=== PATIENT | male | born 1960 | race Caucasian/White ===

== ENCOUNTER → 2019-04-22 | Outpatient (CLI) | payer OTHER ==
[~2019-04-22] MED LIST: ASPIRIN81 M1 PO; GLIMEPIRIDE4 M1 PO; LEVEMIR FL100 UNIT/1 SQ; LIPITOR20 MG PO; METFORMIN1000 MG PO; METOPROLOL SUCC25 M2 PO; STARLIX60 MG PO
== END | disposition home or self-care (01) ==
LOC: US 09:33
DX: E04.1 Nontoxic single thyroid nodule (principal); R91.1 Solitary pulmonary nodule

== ENCOUNTER → 2019-05-24 | Day surgery (SDC) | payer OTHER ==
[~2019-05-24] VITALS: Ht 182.8 cm; Wt 88.5 kg
[2019-05-24 07:05] VITALS: BP 136/87
[2019-05-24 09:06] VITALS: BP 143/82
[2019-05-24 09:21] VITALS: BP 140/86
[2019-05-24 09:36] VITALS: BP 136/78
--- NOTE | 2019-05-24 10:09 | NUR ---
PT WAS FEELING NAUSEATED AFTER DISCHARGED. PRESCRIBED A ZOFRAN ODT. ADMINISTERED PRESCRIBED. THIS RN ALOS CHECKED PTS BSG, WITH RESULTS OF 258.
== END | disposition home or self-care (01) ==
LOC: SDC 05-14 17:00
DX: Z12.11 Encounter for screening for malignant neoplasm of colon (principal); D12.5 Benign neoplasm of sigmoid colon; D12.3 Benign neoplasm of transverse colon; K62.1 Rectal polyp; K57.30 Diverticulosis of large intestine without perforation or abscess without bleeding; K63.5 Polyp of colon; I10 Essential (primary) hypertension; E11.9 Type 2 diabetes mellitus without complications; K21.9 Gastro-esophageal reflux disease without esophagitis; K44.9 Diaphragmatic hernia without obstruction or gangrene; G47.30 Sleep apnea, unspecified; E78.5 Hyperlipidemia, unspecified; Z83.3 Family history of diabetes mellitus; Z82.49 Family history of ischemic heart disease and other diseases of the circulatory system; Z82.3 Family history of stroke; Z79.899 Other long term (current) drug therapy; Z98.890 Other specified postprocedural states; Z87.891 Personal history of nicotine dependence

== ENCOUNTER 2019-09-04 11:13 | Emergency (ER) | payer OTHER ==
[~2019-09-04] VITALS: Wt 89.8 kg
[2019-09-04] MEDS ORDERED: DOXYCYCLINE100 M3 PO (11:39)
[2019-09-04] MEDS ORDERED: IBUPROFEN600 MG PO (11:39)
== END 2019-09-04 11:46 | disposition home or self-care (01) ==
LOC: ED 11:13
DX: L72.3 Sebaceous cyst (principal); L08.9 Local infection of the skin and subcutaneous tissue, unspecified; Z79.899 Other long term (current) drug therapy; Z79.82 Long term (current) use of aspirin

== ENCOUNTER → 2019-09-07 | Outpatient (CLI) | payer OTHER ==
[~2019-09-07] MED LIST changes: +DOXYCYCLINE100 M3 PO; +IBUPROFEN600 MG PO
== END | disposition home or self-care (01) ==
LOC: RAD 11:35
DX: M54.41 Lumbago with sciatica, right side (principal); M54.42 Lumbago with sciatica, left side; G89.29 Other chronic pain; M25.78 Osteophyte, vertebrae

== ENCOUNTER → 2019-09-30 | Day surgery (SDC) | payer OTHER ==
[~2019-09-30] VITALS: Ht 182.8 cm; Wt 89.8 kg
[2019-09-30 09:39] VITALS: BP 152/86
[2019-09-30 11:15] VITALS: BP 141/92
[2019-09-30 11:20] VITALS: BP 140/86
[2019-09-30 11:25] VITALS: BP 128/86
[2019-09-30 11:30] VITALS: BP 126/85
[2019-09-30 11:34] VITALS: BP 132/86
== END | disposition home or self-care (01) ==
LOC: SDC 09-20 11:45
DX: L72.0 Epidermal cyst (principal); I10 Essential (primary) hypertension; E11.9 Type 2 diabetes mellitus without complications; K21.9 Gastro-esophageal reflux disease without esophagitis; Z79.82 Long term (current) use of aspirin; Z79.899 Other long term (current) drug therapy; Z98.890 Other specified postprocedural states; Z83.3 Family history of diabetes mellitus; Z82.49 Family history of ischemic heart disease and other diseases of the circulatory system; Z82.3 Family history of stroke

== ENCOUNTER → 2021-01-09 | Outpatient (CLI) | payer OTHER | END | disposition home or self-care (01) | LOC: CARD 01-04 13:00 | PROVIDERS: ATTEND Internal Medicine Cardiovascular Disease | DX: R01.1 Cardiac murmur, unspecified (principal); I10 Essential (primary) hypertension ==

== ENCOUNTER → 2021-02-27 | Outpatient (CLI) | payer OTHER | END | disposition home or self-care (01) | LOC: US 12:30 | PROVIDERS: ATTEND Internal Medicine Endocrinology, Diabetes & Metabolism | DX: E04.1 Nontoxic single thyroid nodule (principal) ==

== ENCOUNTER → 2022-03-25 | Outpatient (CLI) | payer OTHER | END | disposition home or self-care (01) | LOC: RAD 11:49 | PROVIDERS: ATTEND Nurse Practitioner Primary Care | DX: M16.11 Unilateral primary osteoarthritis, right hip (principal) ==

== ENCOUNTER → 2022-07-01 | Outpatient (CLI) | payer OTHER | END | disposition home or self-care (01) | LOC: RAD 11:44 | PROVIDERS: ATTEND Chiropractor | DX: M47.816 Spondylosis without myelopathy or radiculopathy, lumbar region (principal); M85.88 Other specified disorders of bone density and structure, other site ==

== ENCOUNTER → 2022-10-28 | Outpatient (CLI) | payer OTHER | END | disposition home or self-care (01) | LOC: RAD 09:56 | PROVIDERS: ATTEND Internal Medicine | DX: Z01.818 Encounter for other preprocedural examination (principal); M85.88 Other specified disorders of bone density and structure, other site; R91.8 Other nonspecific abnormal finding of lung field; I70.0 Atherosclerosis of aorta; Z96.649 Presence of unspecified artificial hip joint ==

== ENCOUNTER 2023-03-22 17:15 | Emergency (ER) | payer OTHER ==
[~2023-03-22] VITALS: Ht 180.3 cm; Wt 82.6 kg
[2023-03-22] MEDS ORDERED: LISINOPRIL10 M1 PO (17:47)
[2023-03-22] MEDS ORDERED: ADMELOG100 UNIT/1 SQ (17:48)
[2023-03-22] MEDS ORDERED: CLINDAMYCIN HC300 MG PO (19:02)
== END 2023-03-22 19:29 | disposition home or self-care (01) ==
LOC: ED 17:15
DX: L02.212 Cutaneous abscess of back [any part, except buttock and flank] (principal); E11.9 Type 2 diabetes mellitus without complications; K21.9 Gastro-esophageal reflux disease without esophagitis; Z79.4 Long term (current) use of insulin; Z90.89 Acquired absence of other organs; Z98.890 Other specified postprocedural states

== ENCOUNTER → 2023-05-26 | Day surgery (SDC) | payer OTHER ==
[~2023-05-26] VITALS: Ht 182.8 cm; Wt 83.9 kg
[~2023-05-26] MED LIST changes: +ADMELOG100 UNIT/1 SQ; +CLINDAMYCIN HC300 MG PO; +HYDROCODONE-AC1 EAC1 PO; +LISINOPRIL10 M1 PO
[2023-05-26 06:45] VITALS: BP 145/85
[2023-05-26 08:00] VITALS: BP 116/56
[2023-05-26 08:15] VITALS: BP 107/56
[2023-05-26 08:24] VITALS: BP 111/58
== END ==
LOC: SDC 04-28 11:00
PROVIDERS: ATTEND Surgery
DX: L72.0 Epidermal cyst (principal); E11.9 Type 2 diabetes mellitus without complications; M54.50 Low back pain, unspecified; Z98.890 Other specified postprocedural states; Z79.899 Other long term (current) drug therapy

== ENCOUNTER → 2024-01-23 | Outpatient (CLI) | payer OTHER | END | disposition home or self-care (01) | LOC: US 01:41 | PROVIDERS: ATTEND Nurse Practitioner Primary Care | DX: E04.1 Nontoxic single thyroid nodule (principal) ==

== ENCOUNTER → 2024-01-24 | Outpatient (CLI) | payer OTHER | END | disposition home or self-care (01) | LOC: CT 01:51 | PROVIDERS: ATTEND Nurse Practitioner Primary Care | DX: Z12.2 Encounter for screening for malignant neoplasm of respiratory organs (principal); I25.10 Atherosclerotic heart disease of native coronary artery without angina pectoris; J43.2 Centrilobular emphysema; R91.1 Solitary pulmonary nodule; Z72.0 Tobacco use ==

== ENCOUNTER 2024-02-22 11:25 | Emergency (ER) | payer OTHER ==
[~2024-02-22] VITALS: Ht 182.9 cm; Wt 86.2 kg
== END 2024-02-22 12:42 | disposition home or self-care (01) ==
LOC: ED 11:25
DX: S92.515A Nondisplaced fracture of proximal phalanx of left lesser toe(s), initial encounter for closed fracture (principal); E11.9 Type 2 diabetes mellitus without complications; K21.9 Gastro-esophageal reflux disease without esophagitis; I10 Essential (primary) hypertension; Z90.89 Acquired absence of other organs; Z98.890 Other specified postprocedural states; Z79.4 Long term (current) use of insulin; W22.01XA Walked into wall, initial encounter; Y93.89 Activity, other specified; Y92.89 Other specified places as the place of occurrence of the external cause; Y99.8 Other external cause status

== ENCOUNTER → 2025-07-09 | Outpatient (CLI) | payer OTHER ==
[2025-07-09 09:02] LABS: BUN 20 mg/dl (9-23); LDL CHOLESTEROL 69 mg/dL (9-159); SGPT/ALT 12 U/L (5-49)
== END | disposition home or self-care (01) ==
LOC: LAB 08:14
PROVIDERS: Student in an Organized Health Care Education/Training Program; ATTEND Internal Medicine Endocrinology, Diabetes & Metabolism
DX: E11.9 Type 2 diabetes mellitus without complications (principal)

== ENCOUNTER 2025-10-28 12:32 | Emergency (ER) | payer OTHER ==
[~2025-10-28] VITALS: Ht 182.8 cm; Wt 92.1 kg
[2025-10-28] MEDS ORDERED: Acetaminophen/Oxycodone 5 MG/325 MG TABLET PO ONE (12:50)
== END 2025-10-28 15:10 | disposition home or self-care (01) ==
LOC: ED 12:32
DX: S53.104A Unspecified dislocation of right ulnohumeral joint, initial encounter (principal); M25.421 Effusion, right elbow; E11.9 Type 2 diabetes mellitus without complications; K21.9 Gastro-esophageal reflux disease without esophagitis; I10 Essential (primary) hypertension; Z98.890 Other specified postprocedural states; X58.XXXA Exposure to other specified factors, initial encounter; Y93.89 Activity, other specified; Y92.89 Other specified places as the place of occurrence of the external cause; Y99.8 Other external cause status